=== PATIENT | female | born 1980 | race Caucasian/White ===

== ENCOUNTER → 2016-07-06 | Outpatient (REF) | payer BC | LOC: M SFHCLERA 09:25 | PROVIDERS: ATTEND Physician Assistant | DX: R35.0 Frequency of micturition (principal) ==

== ENCOUNTER → 2017-01-05 | Outpatient (REF) | payer BC | LOC: M SFHCLERA 13:39 | PROVIDERS: ATTEND Physician Assistant | DX: R30.0 Dysuria (principal) ==

== ENCOUNTER → 2017-05-18 | Outpatient (CLI) | payer BC | LOC: M LRY 09:38 | DX: R06.2 Wheezing (principal) | CPT/HCPCS: 71046 ==

== ENCOUNTER → 2017-11-02 | Outpatient (REF) | payer BC ==
[2017-11-02 20:20] LABS: HEMATOCRIT 37.3 % (36.0-47.0); HEMOGLOBIN 12.3 g/dl (12.0-15.5); MEAN CORPUSCULAR HEMOGLOBIN 28.2 pg (27.0-33.0); MEAN CORPUSCULAR VOLUME 85.6 fl (80.0-96.0); PLATELET COUNT, AUTOMATED 321 10^3/uL (150-450); RED BLOOD COUNT 4.36 10^6/uL (4.00-5.40); RED CELL DISTRIBUTION WIDTH 14.5 % (11.5-14.5)
[2017-11-02 20:30] LABS: ALBUMIN 3.9 GM/DL (3.2-5.2); ALBUMIN/GLOBULIN RATIO 1.18 (1.00-1.93); ALKALINE PHOSPHATASE 93 U/L (45-117); ALT/SGPT 28 U/L (12-78); ANION GAP 8 MEQ/L (8-16); AST/SGOT 17 U/L (7-37); BILIRUBIN,TOTAL 0.2 MG/DL (0.2-1.0); BLOOD UREA NITROGEN 17 MG/DL (7-18); CALCIUM LEVEL 9.3 MG/DL (8.5-10.1); CARBON DIOXIDE LEVEL 28 MEQ/L (21-32); CHLORIDE LEVEL 104 MEQ/L (98-107); CREATININE FOR GFR 0.84 MG/DL (0.55-1.30); GLOMERULAR FILTRATION RATE > 60.0 (>60); GLUCOSE, FASTING 85 MG/DL (70-100); POTASSIUM SERUM 4.1 MEQ/L (3.5-5.1); SODIUM LEVEL 140 MEQ/L (136-145); TOTAL PROTEIN 7.2 GM/DL (6.4-8.2)
== END ==
LOC: M SFHCLERA 16:42
DX: F41.8 Other specified anxiety disorders (principal)
CPT/HCPCS: 84443

== ENCOUNTER → 2018-03-24 | Outpatient (CLI) | payer BC ==
[2018-03-24 17:27] LABS: HEMATOCRIT 43.5 % (36.0-47.0); HEMOGLOBIN 13.8 g/dl (12.0-15.5); MEAN CORPUSCULAR HGB CONC 31.7 g/dl (32.0-36.5); MEAN CORPUSCULAR VOLUME 88.2 fl (80.0-96.0); PLATELET COUNT, AUTOMATED 298 10^3/uL (150-450); RED BLOOD COUNT 4.93 10^6/uL (4.00-5.40); RED CELL DISTRIBUTION WIDTH 14.7 % (11.5-14.5); WHITE BLOOD COUNT 9.1 10^3/uL (4.0-10.0)
[2018-03-24 17:47] LABS: ALBUMIN 3.9 GM/DL (3.2-5.2); ALBUMIN/GLOBULIN RATIO 1.11 (1.00-1.93); ALKALINE PHOSPHATASE 82 U/L (45-117); ALT/SGPT 30 U/L (12-78); ANION GAP 10 MEQ/L (8-16); AST/SGOT 18 U/L (7-37); BILIRUBIN,TOTAL 0.3 MG/DL (0.2-1.0); BLOOD UREA NITROGEN 14 MG/DL (7-18); CALCIUM LEVEL 9.3 MG/DL (8.5-10.1); CARBON DIOXIDE LEVEL 24 MEQ/L (21-32); CHLORIDE LEVEL 106 MEQ/L (98-107); CREATININE FOR GFR 0.85 MG/DL (0.55-1.30); GLOMERULAR FILTRATION RATE > 60.0 (>60); GLUCOSE, FASTING 92 MG/DL (70-100); SODIUM LEVEL 140 MEQ/L (136-145); TOTAL PROTEIN 7.4 GM/DL (6.4-8.2)
== END ==
LOC: M WUC 13:04
DX: J20.9 Acute bronchitis, unspecified (principal); R53.83 Other fatigue
CPT/HCPCS: 84443

== ENCOUNTER → 2018-10-25 | Outpatient (REF) | payer BC | LOC: M LAB REF 17:25 | PROVIDERS: ATTEND Advanced Practice Midwife | DX: Z12.4 Encounter for screening for malignant neoplasm of cervix (principal) | CPT/HCPCS: 87624; G0123 ==

== ENCOUNTER → 2019-05-02 | Outpatient (CLI) | payer BC ==
[2019-05-02 10:46] LABS: HEMOGLOBIN 14.5 g/dl (12.0-15.5); MEAN CORPUSCULAR HEMOGLOBIN 29.7 pg (27.0-33.0); MEAN CORPUSCULAR VOLUME 90.2 fl (80.0-96.0); PLATELET COUNT, AUTOMATED 361 10^3/uL (150-450); RED BLOOD COUNT 4.88 10^6/uL (4.00-5.40); WHITE BLOOD COUNT 7.1 10^3/uL (4.0-10.0)
[2019-05-02 11:13] LABS: HEMOGLOBIN A1c 5.7 %
[2019-05-02 11:20] LABS: ALBUMIN 3.8 GM/DL (3.2-5.2); ALT/SGPT 36 U/L (12-78); BILIRUBIN,TOTAL 0.3 MG/DL (0.2-1.0); BLOOD UREA NITROGEN 11 MG/DL (7-18); CALCIUM LEVEL 9.2 MG/DL (8.5-10.1); CARBON DIOXIDE LEVEL 27 MEQ/L (21-32); CHLORIDE LEVEL 103 MEQ/L (98-107); CHOLESTEROL LEVEL 211 MG/DL (<200); CHOLESTEROL RISK RATIO 3.981 (<5); CREATININE FOR GFR 0.94 MG/DL (0.55-1.30); GLOMERULAR FILTRATION RATE > 60.0 (>60); GLUCOSE, FASTING 80 MG/DL (70-100); HDL CHOLESTEROL 53 MG/DL (>40); LDL CHOLESTEROL 114 MG/DL (<100); NON-HDL-C 158 MG/DL; POTASSIUM SERUM 4.4 MEQ/L (3.5-5.1); SODIUM LEVEL 139 MEQ/L (136-145); THYROXINE (T4) 9.8 UG/DL (4.5-12.0); TOTAL PROTEIN 7.2 GM/DL (6.4-8.2); TRIGLYCERIDES LEVEL 220 MG/DL (<150)
[2019-05-02 11:34] LABS: TOTAL 25(OH) VITAMIN D 21.8 NG/ML (30.0-100.0)
[2019-05-02 11:35] LABS: TOTAL T3 162.2 NG/DL (60.0-181.0)
--- NOTE | 2019-05-02 12:31 | REP ---
Two-view chest: 05/02/2019. Indication: Hypertension. Comparison: 03/24/2018. Findings: The lungs are clear. There is no pleural effusion or pneumothorax. The cardiomediastinal silhouette is unremarkable. Impression: No acute cardiopulmonary process. Electronically Signed by Mookie Arce DO 05/02/2019 12:22 P
--- NOTE | 2019-05-02 17:51 | ECGEPIP ---
[facility] Test Date: 2019-05-02 Pat Name: ARIS QUINTERO Department: Room: - Gender: Female [employer]: MIGUEL ÁNGEL : 1980 Requested By: Pablo Zee Order Number: [id number] Reading MD: Sheng Tatum Measurements Intervals [place] Rate: 76 P: 66 ND: 124 QRS: 56 QRSD: 92 T: -7 QT: 398 QTc: 448 Interpretive Statements Normal sinus rhythm QS pattern V1 and V2 rule out prior septal infarction. Nonspecific ST/T-wave abnormalities No prior tracing for comparison Clinical correlation advised Electronically Signed on 05-02-2019 17:51:29 EST by Sheng Tatum
== END ==
LOC: M LAB 09:24
PROVIDERS: ATTEND Family Medicine
DX: I10 Essential (primary) hypertension (principal); E03.9 Hypothyroidism, unspecified; R53.83 Other fatigue

== ENCOUNTER → 2020-03-23 | Outpatient (REF) | payer BC | LOC: M SFHCWAGY 12:53 | PROVIDERS: ATTEND Nurse Practitioner Women's Health | DX: Z12.4 Encounter for screening for malignant neoplasm of cervix (principal) ==

== ENCOUNTER → 2020-03-25 | Outpatient (REF) | payer BC ==
[2020-03-25 10:07] LABS: BASO % 0.6 % (0.0-1.0); EOS # 0.1 10^3/uL (0.0-0.5); HEMATOCRIT 43.7 % (36.0-47.0); HEMOGLOBIN 13.6 g/dl (12.0-15.5); LYMPH # 1.6 10^3/uL (1.5-5.0); LYMPH % 23.6 % (24.0-44.0); MEAN CORPUSCULAR HEMOGLOBIN 27.5 pg (27.0-33.0); MEAN CORPUSCULAR HGB CONC 31.1 g/dl (32.0-36.5); MEAN CORPUSCULAR VOLUME 88.5 fl (80.0-96.0); MONO # 0.6 10^3/uL (0.0-0.8); MONO % 8.2 % (0.0-5.0); NEUTROPHILS # 4.5 10^3/uL (1.5-8.5); NEUTROPHILS % 66.5 % (36.0-66.0); PLATELET COUNT, AUTOMATED 346 10^3/uL (150-450); RED BLOOD COUNT 4.94 10^6/uL (4.00-5.40); WHITE BLOOD COUNT 6.8 10^3/uL (4.0-10.0)
[2020-03-25 10:47] LABS: THYROID STIMULATING HORMONE 1.73 uIU/ML (0.358-3.740)
== END ==
LOC: M PLALAB 08:38
PROVIDERS: ATTEND Nurse Practitioner Women's Health
DX: N93.9 Abnormal uterine and vaginal bleeding, unspecified (principal)

== ENCOUNTER → 2020-03-25 | Outpatient (CLI) | payer BC ==
--- NOTE | 2020-03-25 10:51 | REPMRS ---
Patient History No known family history of cancer. Digital Woman Screen Mammo: March 25, 2020 - Exam #: [id number] Bilateral CC and MLO view(s) were taken. Technologist: Cortney Brown, Technologist No prior studies available for comparison. FINDINGS: There are scattered fibroglandular densities. The Volpara volumetric breast density category is: B. There is no evidence of dominant mass, architectural distortion, or grouped microcalcification typical of malignancy. 3-D tomosynthesis shows no additional findings. Assessment: BI-RADS/ACR category 1 mammogram. Negative Mammogram. Recommendation Routine screening mammogram of both breasts in 1 year (for women over age 40). This patient's Lifetime Breast Cancer RIsk is estimated at 11.1 %. This mammogram was interpreted with the aid of an FDA-approved computer-aided dectection system. Electronically Signed By: Emmanuel Cisneros MD 03/25/20 [id number]
--- NOTE | 2020-03-26 05:38 | REP ---
INDICATION: N93.9 ABNORMAL UTERINE BLEEDING COMPARISON: None. TECHNIQUE: Transabdominal pelvic ultrasound followed by transvaginal examination for better evaluation of the endometrium and adnexa with color Doppler evaluation of the ovaries. FINDINGS: Bladder is under distended. Heterogeneous anteverted uterus measures 10.2 x 5.6 x 6.2 cm. The endometrial complex measures 19 mm thickness. 1.2 cm anterior lower uterine segment fibroid is suggested. Bilateral ovaries are normal in appearance and vascularity without evidence for torsion. Right ovary measures 2.7 x 1.8 x 1.9 cm; left ovary measures 3.0 x 1.4 x 2.7 cm. No pelvic fluid or adnexal mass lesion. IMPRESSION: Heterogeneous anteverted uterus with 1.2 cm lower uterine segment fibroid. The endometrial complex is thickened which may be related to menstrual cycle. <Electronically signed by Álvaro Morales > 03/26/20 [id number]
== END ==
LOC: M WHC 08:47
PROVIDERS: ATTEND Nurse Practitioner Women's Health
DX: N93.9 Abnormal uterine and vaginal bleeding, unspecified (principal); Z12.31 Encounter for screening mammogram for malignant neoplasm of breast; D25.9 Leiomyoma of uterus, unspecified; R93.89 Abnormal findings on diagnostic imaging of other specified body structures

== ENCOUNTER → 2020-04-21 | Outpatient (REF) | payer BC | LOC: M SFHCWAGY 13:23 | PROVIDERS: ATTEND Obstetrics & Gynecology | DX: N93.9 Abnormal uterine and vaginal bleeding, unspecified (principal) ==

== ENCOUNTER → 2020-04-28 | Outpatient (CLI) | payer BC ==
[2020-04-28 11:11] LABS: HEMATOCRIT 39.8 % (36.0-47.0); HEMOGLOBIN 12.4 g/dl (12.0-15.5); MEAN CORPUSCULAR HEMOGLOBIN 26.6 pg (27.0-33.0); MEAN CORPUSCULAR HGB CONC 31.2 g/dl (32.0-36.5); MEAN CORPUSCULAR VOLUME 85.4 fl (80.0-96.0); PLATELET COUNT, AUTOMATED 371 10^3/uL (150-450); RED BLOOD COUNT 4.66 10^6/uL (4.00-5.40); WHITE BLOOD COUNT 6.9 10^3/uL (4.0-10.0)
[2020-04-28 11:43] LABS: ALBUMIN 3.8 GM/DL (3.2-5.2); ALT/SGPT 38 U/L (12-78); BILIRUBIN,TOTAL 0.3 MG/DL (0.2-1.0); BLOOD UREA NITROGEN 12 MG/DL (7-18); CALCIUM LEVEL 9.1 MG/DL (8.5-10.1); CARBON DIOXIDE LEVEL 25 MEQ/L (21-32); CHLORIDE LEVEL 104 MEQ/L (98-107); CHOLESTEROL LEVEL 235 MG/DL (<200); CHOLESTEROL RISK RATIO 4.433 (<5); CREATININE FOR GFR 0.79 MG/DL (0.55-1.30); GLOMERULAR FILTRATION RATE > 60.0 (>58); GLUCOSE, FASTING 86 MG/DL (70-100); HDL CHOLESTEROL 53 MG/DL (>40); LDL CHOLESTEROL 127 MG/DL (<100); NON-HDL-C 182 MG/DL; SODIUM LEVEL 137 MEQ/L (136-145); TOTAL PROTEIN 7.3 GM/DL (6.4-8.2); TRIGLYCERIDES LEVEL 275 MG/DL (<150)
[2020-04-28 11:46] LABS: TOTAL 25(OH) VITAMIN D 17.3 NG/ML (30.0-100.0)
--- NOTE | 2020-04-28 11:54 | REP ---
INDICATION: COPD, HYPOTENSION, FATIGUE. COMPARISON: PA and lateral chest dated 05/02/2019. TECHNIQUE: Upright PA and lateral chest. FINDINGS: The lung singh are clear. Cardiac size is normal. The iggy, mediastinum and skeletal structures are unremarkable. There is no interval change. IMPRESSION: Essentially negative PA and lateral chest <Electronically signed by Eric Barrientos > 04/28/20 [id number]
[2020-04-28 11:55] LABS: HEMOGLOBIN A1c 5.4 %
== END ==
LOC: M LAB 10:27
PROVIDERS: ATTEND Family Medicine
DX: J44.9 Chronic obstructive pulmonary disease, unspecified (principal); R53.83 Other fatigue; E03.9 Hypothyroidism, unspecified

== ENCOUNTER → 2020-08-16 | Outpatient (CLI) | payer BC | LOC: M LAB 09:59 | PROVIDERS: ATTEND Family Medicine | DX: F33.9 Major depressive disorder, recurrent, unspecified (principal) ==

== ENCOUNTER → 2020-12-01 | Outpatient (CLI) | payer BC ==
--- NOTE | 2020-12-01 10:01 | REP ---
INDICATION: COPD. COMPARISON: Comparison chest x-ray April 28, 2020. TECHNIQUE: Two views.. FINDINGS: The lungs are well inflated and free of infiltrate. The pleural angles are sharp. The heart size is normal. Pulmonary vasculature is not increased. No significant bony abnormality is seen. IMPRESSION: Negative chest x-ray. <Electronically signed by Emmanuel Cisneros > 12/01/20 [id number]
== END ==
LOC: M RAD 09:00
PROVIDERS: ATTEND Family Medicine
DX: J44.9 Chronic obstructive pulmonary disease, unspecified (principal)

== ENCOUNTER → 2022-04-13 | Outpatient (CLI) | payer BC | LOC: M WHC 10:31 | PROVIDERS: ATTEND Family Medicine | DX: N63.10 Unspecified lump in the right breast, unspecified quadrant (principal); N64.4 Mastodynia | CPT/HCPCS: 76642; 77066; G0279 ==

== ENCOUNTER → 2022-10-20 | Outpatient (CLI) | payer BC ==
[2022-10-20 09:50] LABS: HEMATOCRIT 40.6 % (36.0-47.0); HEMOGLOBIN 12.5 g/dl (12.0-15.5); MEAN CORPUSCULAR HEMOGLOBIN 23.7 pg (27.0-33.0); MEAN CORPUSCULAR HGB CONC 30.8 g/dl (32.0-36.5); MEAN CORPUSCULAR VOLUME 76.9 fl (80.0-96.0); PLATELET COUNT, AUTOMATED 338 10^3/uL (150-450); RED BLOOD COUNT 5.28 10^6/uL (4.00-5.40); WHITE BLOOD COUNT 5.1 10^3/uL (4.0-10.0)
[2022-10-20 10:08] LABS: HEMOGLOBIN A1c 5.6 % (4.0-6.0)
[2022-10-20 10:18] LABS: ALBUMIN 4.2 G/DL (3.2-5.2); ALKALINE PHOSPHATASE 83 U/L (46-116); ALT/SGPT 21 U/L (7.0-40); AST/SGOT 18 U/L (<34); BILIRUBIN,TOTAL 0.6 MG/DL (0.3-1.2); BLOOD UREA NITROGEN 11 MG/DL (9-23); CARBON DIOXIDE LEVEL 24 MMOL/L (20-31); CHLORIDE LEVEL 105 MMOL/L (98-107); CHOLESTEROL LEVEL 209 MG/DL (<200); CHOLESTEROL RISK RATIO 3.31 (<5); GLOMERULAR FILTRATION RATE > 60.0 (>58); GLUCOSE, FASTING 89 MG/DL (60-100); LDL CHOLESTEROL 127.6 MG/DL (<100); SODIUM LEVEL 138 MMOL/L (136-145); TRIGLYCERIDES LEVEL 92 MG/DL (<150)
[2022-10-20 10:19] LABS: THYROID STIMULATING HORMONE 1.225 uIU/ML (0.55-4.78)
[2022-10-20 10:20] LABS: TOTAL 25(OH) VITAMIN D 20.2 NG/ML (20.0-100.0)
== END ==
LOC: M RAD 08:41
PROVIDERS: ATTEND Family Medicine
DX: Z02.1 Encounter for pre-employment examination (principal); D64.9 Anemia, unspecified; R53.83 Other fatigue

== ENCOUNTER → 2023-01-23 | Outpatient (CLI) | payer BC ==
[2023-01-23 14:46] LABS: BASO # 0.1 10^3/uL (0.0-0.2); BASO % 0.9 % (0.0-1.0); EOS # 0.2 10^3/uL (0.0-0.5); EOS % 3.6 % (0.0-3.0); HEMATOCRIT 47.3 % (36.0-47.0); HEMOGLOBIN 15.2 g/dl (12.0-15.5); LYMPH # 1.6 10^3/uL (1.5-5.0); LYMPH % 27.1 % (24.0-44.0); MEAN CORPUSCULAR HEMOGLOBIN 29.5 pg (27.0-33.0); MEAN CORPUSCULAR HGB CONC 32.1 g/dl (32.0-36.5); MEAN CORPUSCULAR VOLUME 91.8 fl (80.0-96.0); MONO # 0.5 10^3/uL (0.0-0.8); MONO % 9.4 % (2.0-8.0); NEUTROPHILS # 3.4 10^3/uL (1.5-8.5); NEUTROPHILS % 58.7 % (36.0-66.0); PLATELET COUNT, AUTOMATED 292 10^3/uL (150-450); RED BLOOD COUNT 5.15 10^6/uL (4.00-5.40); WHITE BLOOD COUNT 5.8 10^3/uL (4.0-10.0)
[2023-01-23 15:15] LABS: FREE T4 0.92 NG/DL (0.89-1.76); THYROID STIMULATING HORMONE 2.865 uIU/ML (0.55-4.78)
== END ==
LOC: M PLALAB 09:28
PROVIDERS: ATTEND Nurse Practitioner Family
DX: N73.9 Female pelvic inflammatory disease, unspecified (principal); N92.0 Excessive and frequent menstruation with regular cycle

== ENCOUNTER → 2023-03-15 | Outpatient (CLI) | payer BC | LOC: M WHC 08:58 | PROVIDERS: ATTEND Nurse Practitioner Family | DX: N92.0 Excessive and frequent menstruation with regular cycle (principal); N88.8 Other specified noninflammatory disorders of cervix uteri ==

== ENCOUNTER → 2023-03-27 | Outpatient (REF) | payer BC | LOC: M SFHCWAGY 13:29 | PROVIDERS: ATTEND Nurse Practitioner Family | DX: N92.0 Excessive and frequent menstruation with regular cycle (principal); N85.9 Noninflammatory disorder of uterus, unspecified ==